=== PATIENT | female | born 1985 | race Caucasian/White ===

== ENCOUNTER 2016-09-29 05:17 | Day surgery (SDC) | payer MEDICAID ==
[~2016-09-29 05:17] MED LIST: ADDERALL 15 MG15 MG PO; FEROSUL325 M1 PO; METAMUCIL0.52 G1 PO; OMEPRAZOLE20 MG PO; PRENATAL VITAM1 EAC7 PO; PRENATAL1 TAB; PROTONIX40 M1 PO; TOPROL XL50 MG PO; TUMS200 MG PO; TYLENOL ARTHRI650 M1 PO; ULTRAM50 M1 PO; ULTRAM50 MG PO; ZOLOFT25 MG
[2016-09-29 06:02] LABS: URINE APPEARANCE HAZY; URINE BILIRUBIN NEGATIVE (NEG); URINE BLOOD NEGATIVE (NEG); URINE COLOR YELLOW; URINE GLUCOSE (UA) NEGATIVE (NEG); URINE KETONE NEGATIVE (NEG); URINE LEUKOCYTE ESTERASE POSITIVE (NEG); URINE NITRITE NEGATIVE (NEG); URINE PROTEIN NEGATIVE (NEG)
[2016-09-29 06:05] LABS: URINE BACTERIA 2+; URINE RBC 0 /[HPF] (0-5)
[2016-09-29 06:22] LABS: BASO % 0.3 % (0-2); EOS % 2.4 % (0-7); EOSINOPHIL ABSOLUTE COUNT 0.2 tho/cmm (0.0-0.7); HCT-HEMATOCRIT 40.7 % (34.0-49.0); HGB-HEMOGLOBIN 13.8 gm/dl (12.0-15.5); LYMPH % 24.9 % (20-45); LYMPH ABSOLUTE COUNT 2.3 tho/cmm (0.8-4.5); MCH (MEAN CORPUSCULAR HGB) 30.7 pg (28.0-32.0); MCHC MEAN CORPUSCULAR HGB CONC 33.9 % (32.0-36.0); MCV (MEAN CELL VOLUME) 90.6 fl (82.0-96.0); MEAN PLATELET VOLUME 11.1 cmc (9.4-12.4); MONO % 7.6 % (0-12); MONOCYTE ABSOLUTE COUNT 0.7 tho/cmm (0.0-1.2); NEUTROPHILS % 64.8 % (40-80); PLATELET COUNT 179 tho/cmm (150-450); RED BLOOD COUNT 4.49 mil/cmm (4.00-5.20); RED CELL DISTRIBUTION WIDTH 14.1 % (12.4-16.4); WHITE BLOOD COUNT 9.2 tho/cmm (4.0-10.0)
== END 2016-09-29 09:15 ==
LOC: SHSB 05:17 → ORW 07:13 → PACU 07:43 → SHSB 08:15
PROVIDERS: Obstetrics & Gynecology
PROC: 0UBC7ZX Excision of Cervix, Via Natural or Artificial Opening, Diagnostic (ICD-10-PCS; principal; 2016-09-29)
DX: N87.9 Dysplasia of cervix uteri, unspecified (principal); K21.9 Gastro-esophageal reflux disease without esophagitis; Z87.891 Personal history of nicotine dependence; Z88.2 Allergy status to sulfonamides; Z98.890 Other specified postprocedural states